=== PATIENT | male | born 1950 | race Caucasian/White ===

== ENCOUNTER → 2022-10-25 10:17 | Outpatient (CLI) | payer MEDICARE, OTHER, SELFPAY ==
--- NOTE | 2022-10-25 10:24 | XR_ITS ---
FINAL REPORT TECHNIQUE: Chest PA & Lateral CLINICAL HISTORY: LT SIDED CHEST PAIN,WHEEZING ON BOTH SIDES OF CHEST FINDINGS: 2 views of the chest were performed. The heart size is normal. The mediastinum is within normal limits. Large presumed mass in the left upper thorax with erosion of the left third and fourth lateral ribs. Left pleural thickening versus loculated pleural effusion. There is no pneumothorax. IMPRESSION: Large presumed mass in the left upper thorax with erosion of the left third and fourth lateral ribs. Recommend chest CT with contrast. Left pleural thickening versus loculated pleural effusion. Reviewed, Interpreted and Dictated by Sim Yanez III, MD Transcribed by Tyron Francis Authenticated and . [facility]
[2022-10-25 11:00] LABS: Basophils % 0.3 % (0.1-2.0); Eosinophils # 0.2 K/mm3 (0.0-0.4); Hematocrit 39.5 % (42.0-52.0); Hemoglobin 12.6 g/dL (14.1-18.0); Lymphocytes # 0.7 K/mm3 (0.7-4.5); Lymphocytes % 7.8 % (10-50); Mean Corpuscular HGB Conc 31.9 g/dL (31.8-35.4); Mean Corpuscular Hemoglobin 25.1 pg (27.0-31.2); Mean Corpuscular Volume 78.7 fl (80-94); Mean Platelet Volume 8.1 fl (7.4-10.4); Monocytes # 0.5 K/mm3 (0.1-1.0); Monocytes % 5.7 % (1.7-9.3); Neutrophils # 7.2 K/mm3 (1.8-7.8); Neutrophils % 84.2 % (37.0-80.0); Platelet Count 417 K/mm3 (142-424); Red Blood Count 5.02 M/mm3 (4.60-6.20); Red Cell Distribution Width 14.6 % (11.5-17.5); White Blood Count 8.6 K/mm3 (4.8-10.8)
[2022-10-25 11:05] LABS: Chloride 92 mmol/L (98-107); Potassium 3.5 mmoL/L (3.5-5.1); Sodium 140 mmol/L (136-145)
[2022-10-25 11:07] LABS: Blood Urea Nitrogen 10 mg/dl (9-20); Estimated Glomerular Filt Rate 83 ml/min (>60); GFR (African American) 101 ML/MIN (>60)
[2022-10-25 11:08] LABS: Alanine Aminotransferase 11 U/L (12-78); Albumin Level 3.8 g/dl (3.5-5.0); Albumin/Globulin Ratio 1.1 (1.1-1.8); Alkaline Phosphatase 105 U/L (38-126); Anion Gap 12.5 mEq/L (5-15); Aspartate Amino Transferase 20 U/L (17-59); Bilirubin,Total 0.7 mg/dl (0.2-1.3); Calcium 8.7 mg/dl (8.4-10.2); Carbon Dioxide 39 mmol/L (22.0-30.0); Globulin 3.6 g/dL (1.3-3.2); Glucose 117 mg/dl (74-100); Total Protein,Serum 7.4 g/dl (6.3-8.2)
[2022-10-25 11:25] LABS: Troponin I < 0.01 ng/ml (0.00-0.034)
[2022-10-25 11:46] LABS: Thyroid Stimulating Hormone 2.28 uIU/mL (0.465-4.68)
--- NOTE | 2022-10-25 13:03 | CT_ITS ---
FINAL REPORT CLINICAL HISTORY: LT LUNG MASS FINDINGS: Axial images were obtained from the lung apex to the mid abdomen by computed tomography after the administration of IV contrast. Coronal reformatted images were obtained. This study was performed with techniques to keep radiation doses as low as reasonably achievable, (ALARA). Individualized dose reduction techniques using automated exposure control or adjustment of mA and/or kV according to the patient's size were employed. The heart is normal size. There is a small pericardial effusion. There is no axillary adenopathy. There are several enlarged mediastinal lymph nodes worrisome for metastatic adenopathy. A left prevascular lymph node measures 19 mm. A precarinal lymph node measures 15 mm. There is a left upper lobe mass extending to the left lateral chest wall measuring 9.8 x 9.8 cm. There are multiple low-attenuation areas within the mass likely representing necrosis. There is erosion of the second, third and fourth left lateral ribs consistent with tumor involvement. There is bibasilar atelectasis or pneumonia. A gallstone is seen in the gallbladder. There is a right 11th posterolateral rib mass consistent with metastasis. IMPRESSION: 9.8 x 9.8 cm left upper lobe mass extending to the chest wall with erosion of the second, third and fourth left lateral ribs. Mediastinal adenopathy worrisome for metastatic adenopathy. 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 Bibasilar atelectasis or pneumonia. Reviewed, Interpreted and Dictated by Sim Yanez III, MD Transcribed by Tyron Francis Authenticated and [facility]
[2022-10-26 04:09] LABS: C-Reactive Protein, Cardiac 63.17 mg/L (0.00-3.00)
== END ==
PROVIDERS: PCP Nurse Practitioner Family; Visit Provider Nurse Practitioner Family
DX: R07.9 Chest pain, unspecified (principal); R06.2 Wheezing; E03.9 Hypothyroidism, unspecified; R91.8 Other nonspecific abnormal finding of lung field
CPT/HCPCS: 36415; 71046; 71260; 80053; 84443; 84484; 85025; 86141; Q9967

== ENCOUNTER → 2022-11-08 07:32 | Outpatient (CLI) | payer MEDICARE, OTHER, SELFPAY ==
--- NOTE | 2022-11-08 07:33 | CA_ITS ---
APPROVED REPORT Exam: Pharmacologic Technologist: Carie Medina, Ht: 5 ft 8 in Wt: 165 lbs BSA: 1.88 m2 HR: 90 bpm BP: 146/70 mmHg Rhythm: SR Medical History Medical History: HTN Medications: Amlodipine,,,,, Aspirin,,,,, Albuterol,,,,, Ranitidine HCL,,,,, ColCHIcine,,,,, Allergies: PENICILLIN Cardiac Risk Factors: Smoking (FORMER) Stress Test Details Test: LEXISCAN HR Resting HR: 87 bpm Max Heart Rate (APMHR): 148 bpm Max HR Achieved: 96 bpm Target HR (85% APMHR): 126 bpm % of APMHR: 65 Recovery HR: 89 bpm BP Resting BP: 146/70 mmHg Max BP: 147/66 mmHg Recovery BP: 128.0/68.0 mmHg ECG Resting ECG: SR, Q waves and nonspecific T wave changes in the inferior leads Stress ECG: No change Arrhythmia: None Recovery ECG: No change Recovery Arrhythmia: None Clinical Exercise duration: 04:01 min Highest Stage Achieved: Exercise capacity: n/a METs Stress ECG Conclusion PT BECAME DIZZY NO SIGNIFICANT ST CHANGES WITH PHARMACOLOGIC STRESS TESTING CONCLUSION UNREMARKABLE PHARMACOLOGIC ECG STRESS TEST MYOVIEW IMAGES ARE REPORTED SEPARATELY Test Summary REST 02:06 . . 87 . 146/ 70 . . Stage 1 . . . . . . . Myoview Injected Stage 1 01:00 . . 93 . . . . Stage 2 01:00 . . 91 . . . . Stage 3 01:00 . . 89 . 127/ 59 . . Stage 4 01:00 . . 88 . 132/ 61 . . Stage 4 01:01 . . 88 . 132/ 61 . Stop exercise at 04:01 RECOVERY 01:00 . . 91 . . . . RECOVERY 02:00 . . 89 . 147/ 66 . . RECOVERY 03:00 . . 85 . 147/ 66 . . RECOVERY 03:36 . . 90 . 128/ 68 . . Electronically signed by : Jessy Doe, 11/10/2022 00:01:51
--- NOTE | 2022-11-08 07:33 | NM_ITS ---
APPROVED REPORT Exam: Nuclear Stress Test Indication: C.P., SOB, FATIGUE, FORMER SMOKER, ABN EKG Patient Location: Outpatient Stress Tech: Carie Medina [place] Tech:Jo [place] ARRT RT (R)(N)(M) Ht: 5 ft 8 in Wt: 148 lbs HR: 90 bpm BP: 146/70 mmHg BSA: 1.80 m2 Rhythm: Atrial Fibrillation, NSR TID: 0.99 BMI: 22.5 History: C.P., SOB, FATIGUE, FORMER SMOKER, ABN EKG PT COULD NOT LAT ON ABDOMEN FOR PRONE IMAGES Procedure: Patient received 0.4 mg of intravenous Lexiscan, resting heart rate 90 bpm, resting blood pressure 146/70 mmHg, with Lexiscan maximum heart rate achieved was 89 bpm which is % of the maximum predicted heart rate and blood pressure was 127/59 mmHg. With Lexiscan, patient denied any complaint of chest pain. Cardiac Stress and Resting SPECT Images: Cardiac Stress and Resting SPECT images were obtained using technetium 99m Myoview 31.0 mCi stress and 10.55 mCi at rest. The patient could not lie on his abdomen, and thereby prone stress images could not be obtained. This may affect the diagnostic interpretation of the study findings. Resting and stress imaging in supine position demonstrate no fixed or reversible perfusion defects. There is mild tapering of the uptake in the basal inferior wall suggestive of diaphragmatic attenuation. Gated imaging demonstrates normal global and regional LV systolic function. LVEF is calculated at 60%. Conclusion: The patient could not lie on his abdomen, and thereby prone stress images could not be obtained. This may affect the diagnostic interpretation of the study findings. Resting and stress imaging in supine position demonstrate no fixed or reversible perfusion defects. There is mild tapering of the uptake in the basal inferior wall suggestive of diaphragmatic attenuation. Gated imaging demonstrates normal global and regional LV systolic function. LVEF is calculated at 60%. Electronically signed by : Jessy Doe, 11/10/2022 00:05:31
== END ==
PROVIDERS: PCP Nurse Practitioner Family; Visit Provider Physician Assistant
DX: F17.210 Nicotine dependence, cigarettes, uncomplicated (principal); R06.09 Other forms of dyspnea; R07.9 Chest pain, unspecified; R53.83 Other fatigue; R94.31 Abnormal electrocardiogram [ECG] [EKG]
CPT/HCPCS: 78452; 93017; 93306; A9502; J2785

== ENCOUNTER 2022-11-21 08:23 | Day surgery (SDC) | payer MEDICARE, OTHER, SELFPAY ==
[2022-11-21] VITALS (12 sets, daily range): BP systolic 143–184; BP diastolic 57–83; PULSE 94–102; RESP 14–20; TEMP 36.5–36.9; O2SAT 90–96; BMI 21.2
--- NOTE | 2022-11-21 09:38 | EXP.ANES.CKL ---
[facility] Disclaimer: The information contained in this section may have been updated after the patient was seen, as this information can be updated by other users. Medical History Abnormal electrocardiogram [ECG] [EKG] Chest pain Dyspnea on exertion Fatigue Hilar lymphadenopathy Lung mass Mediastinal lymphadenopathy Smoking greater than 30 pack years Tobacco use Surgical History History of knee surgery Family History Other No significant family history Social History Smoking Status: Former smoker how long ago did patient quit smokin months second hand exposure: No alcohol intake: never substance use type: denies use current occupational status: retired Travel in the last 8 weeks: None adopted: No caregiver/support person: No foster care: No household members: none housing: house lives independently: Yes marital status: education level: high school service: Yes ([employer]) [employer]: No caffeine: Yes special elvia needs: No do you feel safe at home: Yes victim of physical abuse: No victim of emotional abuse: No victim of sexual abuse: No would you like helpful sources: No [facility] Anesthesia Checklist Patient Identification Patient Identification: Arm Band and Family Structural Data Admitted From: Home Planned Operative Procedure/s: Bronchoscopy with Biopsy and EBUS Consent for Planned Operative Procedure(s) Verified: Yes Verified Documents: Surgical Consent, History and Physical and Cardiac Clearance NPO Status Verified Time NPO: 00:00 Additional verifications Anesthesia Reactions: No Hx Blood Transfusions: No Airway Assessment C-Spine Mobility Assessed: Yes TMJ Mobility Assessed: Yes Dentition: Edentulous Neurological Assessment Level of Consciousness: Awake and Alert Anesthesia Plan Anesthesia Risk discussed: Yes Anesthesia Plan: Verified ASA Class: III Anesthesia Type: General
--- NOTE | 2022-11-21 13:43 | P.PCN_ITS ---
Procedure: Date: 11/21/22 Patient Date of :: 1950 Procedure Performed:: Bronchoscopy airway examination, endobronchial biopsy, endobronchial ultrasound- guided fine-needle aspirate Indications:: Lung mass and lymphadenopathy Performing Provider:: Tianna Garcia MD Referring Provider:: Dr: Camille Adkins APRN Sedation:: General anesthesia Procedure:: Bronchoscopy airway examination, endobronchial biopsy, endobronchial ultrasound- guided fine-needle aspirate: A clean EBUS bronchoscopy was withdrawn to the ET tube and lymph node surveillance was performed. Patient noted lymphadenopathy at station 4L and station 7. EBUS bronchoscopy was unable to pass beyond left upper lobe bronchi. FNA samples were performed at stations 4L and station 7. Total of 5 passes were performed at station 4L and 7 passes were performed at station 7. Pathology at bedside, confirmed lymphoid tissue. Did not appreciate any atypical cells at the moment. We will follow with final results. The EBUS bronchoscopy was retracted and a clean diagnostic bronchoscopy was advanced through the ET tube and airways were examined up to subsegmental bronchi. Complete occlusion of the left upper lobe bronchus mass protruding into the left mainstem bronchi almost occluding 70 to 80% of the left lower lobe bronchial lumen. The diagnostic bronchoscopy was able to be passed into the left lower lobe bronchi for which the lumen appear intact beyond the mass. No significant abnormalities noted on the right lung bronchus. Bronchial lavage was performed in the LEFT LUNG with instillation of 60 cc normal saline with return of 30 cc back turbid yellow. BAL fluid was sent for bacterial stain and culture along with cytopathology. bEndobronchial biopsy was performed at the left upper lobe endobronchial mass with a total of 7 biopsies performed and were sent in formalin for cytopathologic examination. Patient tolerated the procedure with no immediate acute complications. We will follow the patient in pulmonary clinic in 7 to 10 days. Findings:: Please see the procedure note Recommendations:: Postoperative bronchoscopy instructions Follow in pulmonary clinic in 5 to 7-day Complications:: No acute immediate complications Estimated blood obtained (mL): 10
--- NOTE | 2022-11-21 13:55 | EXP.ANES.I ---
[facility] Anesthesia Record Part I Anesthesia Record I Intake, IV Amount: 1,400 Estimated blood loss (mL): 5 Urine output (mL): 0 Blood Products used (#): none Blood Pressure: 184/83 SaO2: 95 Pulse Rate: 95 Respiratory Rate: 14 Temperature: 98 F Patient is:: Drowsy and Stable Stable to PACU at:: 13:45
--- NOTE | 2022-11-21 14:19 | XR_ITS ---
FINAL REPORT CLINICAL HISTORY: post op bronch, exam done portable in pacu. COMPARISON: 10/25/2022 FINDINGS: SINGLE VIEW CHEST The heart size is normal. The mediastinum is normal. There is worsening opacification of the left thorax. There is erosion of the left second, third, and fourth lateral ribs, worse. These findings are worrisome for worsening neoplastic involvement. There is no pneumothorax. IMPRESSION: Worsening opacification of the left thorax. Worsening erosion of the left second, third, and fourth lateral ribs, worrisome for worsening neoplastic involvement. A chest CT with contest is recommended, if not already performed. Reviewed, Interpreted and Dictated by Sim Yanez III, MD Transcribed by Berto Booth Authenticated and [facility]
--- NOTE | 2022-11-22 07:18 | EXP.ANES.II ---
[facility] Anesthesia Record Part II Anesthesia Record Part II Discharge Time: 14:25 Destination: Surgical Day Care (OP Surgery) PACU nurse assessment reviewed?: Yes Patient Condition:: Good Anesthesia Complications:: None Swallowing reflex intact?: Yes Cyanosis?: No Blood Pressure: 158/68 Pulse Rate: 98 Temperature: 98.4 F Mental Status: Alert & Oriented Pain level:: 0 Nausea and/or vomitting:: None Intake, IV Amount: 0
[2022-11-22 07:19] VITALS: BP 158/68; PULSE 98; TEMP 36.9
== END 2022-11-21 15:58 | disposition home or self-care (01) ==
PROVIDERS: PCP Nurse Practitioner Family; Visit Provider Internal Medicine Pulmonary Disease
PROC: (CPT 31624; principal; 2022-11-21 10:00)
DX: R91.8 Other nonspecific abnormal finding of lung field (principal); J44.9 Chronic obstructive pulmonary disease, unspecified; C34.12 Malignant neoplasm of upper lobe, left bronchus or lung; J98.19 Other pulmonary collapse; R59.0 Localized enlarged lymph nodes; R06.09 Other forms of dyspnea; Z87.891 Personal history of nicotine dependence; Z79.899 Other long term (current) drug therapy
CPT/HCPCS: 31624; 31628; 31652; 71045; 87070; 87205; 88112; 88172; 88173; 88305; 88342; 88360; 96372; J2405